=== PATIENT | male | born 1965 | race Caucasian/White ===

== ENCOUNTER 2022-03-14 10:18 | Outpatient (CLI) | payer BC, SELFPAY ==
[2022-03-14 17:49] LABS: HIV 1/2/P24 Combo Screen* Negative (Negative)
== END 2022-03-14 10:19 | disposition home or self-care (01) ==
LOC: NFLDREF 15:40
PROVIDERS: PCP Family Medicine; Visit Provider Family Medicine
DX: Z11.3 Encounter for screening for infections with a predominantly sexual mode of transmission (principal)
CPT/HCPCS: 86703

== ENCOUNTER 2022-09-02 08:45 | Outpatient (CLI) | payer BC, SELFPAY | END 2022-09-02 08:46 | disposition home or self-care (01) | LOC: NFLDREF 09-03 00:11 | PROVIDERS: PCP Family Medicine; Referring Provider Family Medicine; Visit Provider Family Medicine | DX: Z00.00 Encounter for general adult medical examination without abnormal findings (principal); R79.89 Other specified abnormal findings of blood chemistry; Z13.6 Encounter for screening for cardiovascular disorders; Z12.5 Encounter for screening for malignant neoplasm of prostate | CPT/HCPCS: 80053; 80061; 84153 ==

== ENCOUNTER 2023-07-27 09:26 | Outpatient (CLI) | payer BC, SELFPAY ==
--- NOTE | 2023-07-27 10:41 | W.ANESCHARGE ---
Anesthesia Charges Start Date/Time Anesthesia Start Date: 07/27/23 Anesthesia Start Time: 10:09 Stop Date/Time Anesthesia Stop Date: 07/27/23 Anesthesia Stop Time: 10:37
--- NOTE | 2023-07-27 11:28 | W.ANESCHARGE ---
Anesthesia Charges Start Date/Time Anesthesia Start Date: 07/27/23 Anesthesia Start Time: 10:09 Stop Date/Time Anesthesia Stop Date: 07/27/23 Anesthesia Stop Time: 10:37
== END 2023-07-27 09:27 | disposition home or self-care (01) ==
LOC: OP CLINIC 09:26
PROVIDERS: PCP Family Medicine; Visit Provider Internal Medicine
DX: K63.5 Polyp of colon (principal); K57.30 Diverticulosis of large intestine without perforation or abscess without bleeding; Z86.010 Personal history of colon polyps
CPT/HCPCS: 00811; 45380; 88305; J2704

== ENCOUNTER 2023-09-07 08:27 | Outpatient (CLI) | payer BC, SELFPAY ==
--- OUTSIDE RECORDS SUMMARY | 2023-09-15 07:26 | XMS_ITS | Encounter Summary ---
Author Name Unknown Organization [place] Address [address] [place] [address] Care Team Providers Care Building Carpenter Name Role Phone Jamir Mcdaniel MD Primary Care Provider [phone] Duke Osorio [facility] Unavailable [phone] Jamir Mcdaniel MD Unavailable Jamir Mcdaniel MD Unavailable Reason for Visit * Reason Onset Date Comments Patient Reminder 06/05/2015 Due for six thu ov. Encounter Details Date Type Department Care Team (Late st Contact Info) Description 06/05/2015 [facility] [address] [phone] [place]apnaNellieDe [place] Patient Reminder (Due for six month ov.) Social History Tobacco Use Types Packs/Day Years Used Date Smoking Tobacco: Never Smokeless Tobacco: Never Alcohol Use Standard Drinks/Week Comments Yes 0 (1 standard drink = 0.6 oz pur e alcohol) Sex and Gender Information Value Date Recorded Sex Assigned at Not on file Gender Identity Not on file Sexual Orientation Not on file documented as of this encounter Plan of Treatment Not on file documented as of this encounter Visit Diagnoses Not on filedocumented in this encounter Care Teams Building Carpenter Relationship Specialty Start Date End Date Jamir Mcdaniel MD [address] [place] [address] PCP - General Family Practice 08/30/12 Jamir Mcdaniel MD [address] [place] [address] PCP - Assigned PCP 08/05/12 08/03/18 Duke Osorio, [facility] [address] [place] [address] Other (see comments) Photography Coordinator - Clinical 12/06/13 Jamir Mcdaniel MD [address] [place] [address] Assigned PCP 08/05/12 09/25/18 documented as of this encounter
--- OUTSIDE RECORDS SUMMARY | 2023-09-15 07:26 | XMS_ITS | Encounter Summary ---
Author Name Unknown Organization [place] Address [facility] [place] [address] Care Team Providers Care Net Maker Name Role Phone Jamir Martinez MD Primary Care Provider Duke Osorio [facility] Unavailable [phone] Jamir Martinez MD Unavailable Jamir Martinez MD Unavailable Encounter Details Date Type Department Care Team (Late st Contact Info) Description 12/22/2014 [facility] [address] [phone] Jamir Martinez MD [address] [place] [id number] Social History Tobacco Use Types Packs/Day Years Used Date Smoking Tobacco: Never Smokeless Tobacco: Never Alcohol Use Standard Drinks/Week Comments Yes 0 (1 standard drink = 0.6 oz pur e alcohol) Sex and Gender Information Value Date Recorded Sex Assigned at Not on file Gender Identity Not on file Sexual Orientation Not on file documented as of this encounter Miscellaneous Notes * Telephone Encounter - Bertha Meng RN - 12/22/2014 3:[address] martinez Pt last office visit with you 07/16 Please see my chart msg below and advise. Thanks! ANG Stone Triage Nurse documented in this encounter Plan of Treatment Not on file documented as of this encounter Visit Diagnoses Not on filedocumented in this encounter Care Teams Net Maker Relationship Specialty Start Date End Date Jamir Martinez MD [address] [place] [address] PCP - General Family Practice 08/30/12 Jamir Martinez MD [address] [place] [address] PCP - Assigned PCP 08/05/12 08/03/18 Duke Osorio, [facility] [address] [place] [address] Other (see comments) Hospital Educator - Clinical 12/06/13 Jamir Martinez MD [address] [place] [address] Assigned PCP 08/05/12 09/25/18 documented as of this encounter
--- OUTSIDE RECORDS SUMMARY | 2023-09-15 07:26 | XMS_ITS | Encounter Summary ---
Author Name Unknown Organization [place] Address [facility] [place] [address] Care Team Providers Care Gate Manager Name Role Phone Jamir Mcdaniel MD Primary Care Provider [phone] Duke Osorio [facility] Unavailable + [phone] Jamir Mcdaniel MD Unavailable Jamir Mcdaniel MD Unavailable Reason for Visit * Reason Onset Date Comments Patient Request 08/28/2015 results Encounter Details Date Type Department Care Team (Late st Contact Info) Description 08/28/2015 Telephone [facility] [address] [phone] Gilmar Davies NP [address] [facility] [address] [place], [place] [id number] Patient Request (results) Social History Tobacco Use Types Packs/Day Years [...] encounter Miscellaneous Notes * Telephone Encounter - Gilmar Davies NP - 08/28/2015 1:43 PM CDT Discussed MRI results and difference from a disc herniation and DDD/ * Telephone Encounter - Jose Schwabin - 08/28/2015 1:31 PM CDT Patient wants to talk more about MRI results documented in this encounter Plan of Treatment Not on file documented as of this encounter Visit Diagnoses Not on filedocumented in this encounter Additional Health Concerns Assessment Noted Time PHQ-9 Depression Total Score: 1 08/17/19 16 8:05 AM CDT documented as of this encounter Care Teams Gate Manager Relationship Specialty Start Date End Date Jamir Mcdaniel MD [address] [place] [address] PCP - General Family Practice 08/30/12 Jamir Mcdaniel MD [address] [place] [address] PCP - Assigned PCP 08/05/12 08/03/18 Duke Osorio, [facility] [address] [address] Other (see comments) Student Ministries Director - Clinical 12/06/13 Jamir Mcdaniel MD [address] [place] [address] Assigned PCP 08/05/12 09/25/18 documented as of this encounter
--- OUTSIDE RECORDS SUMMARY | 2023-09-15 07:26 | XMS_ITS | Encounter Summary ---
Author Name Unknown Organization [place] Address [facility] [place] [address] Care Team Providers Care Racecar Driver Name Role Phone Jamir Mcdaniel MD Primary Care Provider [phone] Duke Osorio HANDS HANGER Unavailable [phone] Jamir Mcdaniel MD Unavailable Jamir Mcdaniel MD Unavailable Reason for Visit * Reason Comments Outpatient Therapy Discharge Summary Encounter Details Date Type Department Care Team (Late st Contact Info) Description 05/04/2013 [facility] Extended Documentation [address] [phone] Duke Osorio, HANDS HANGER [address] [address] Social History Tobacco Use Types Packs/Day Years [...] on filedocumented in this encounter Care Teams Racecar Driver Relationship Specialty Start Date End Date Jamir Mcdaniel MD [address] [place] [address] PCP - General Family Practice 08/30/12 Jamir Mcdaniel MD [address] [place] [address] PCP - Assigned PCP 08/05/12 08/03/18 Duke Osorio, [facility] [address] [address] Other (see comments) Arts Therapist - Clinical 12/06/13 Jmair Mcdaniel MD [address] [place] [address] Assigned PCP 08/05/12 09/25/18 documented as of this encounter
--- OUTSIDE RECORDS SUMMARY | 2023-09-15 07:26 | XMS_ITS | Encounter Summary ---
Author Name Unknown Organization [place] Address [facility] [address] Care Team Providers Care Golf Course Starter Name Role Phone Jamir Mcdaniel MD Primary Care Provider [phone] Duke Osorio COAL YARD SUPERVISOR Unavailable [phone] Jamir Mcdaniel MD Unavailable Jamir Mcdaniel MD Unavailable Reason for Visit * Reason Comments Outpatient Therapy Treatment Plan Encounter Details Date Type Department Care Team (Late st Contact Info) Description 09/24/2012 [facility] Extended Documentation [address] [phone] Duke Osorio, COAL YARD SUPERVISOR [address] [address] Social History Tobacco Use Types Packs/Day Years Used Date Smoking Tobacco: Never Alcohol Use Standard Drinks/Week Comments [...] on filedocumented in this encounter Care Teams Golf Course Starter Relationship Specialty Start Date End Date Jamir Mcdaniel MD [address] [place] [address] PCP - General Family Practice 08/30/12 Jamir Mcdaniel MD [address] [place] [address] PCP - Assigned PCP 08/05/12 08/03/18 Duke Osorio, [facility] [address] [place] [address] Other (see comments) Manager Library - Clinical 12/06/13 Jamir Mcdaniel MD [address] [place] [address] Assigned PCP 08/05/12 09/25/18 documented as of this encounter
--- OUTSIDE RECORDS SUMMARY | 2023-09-15 07:26 | XMS_ITS | Clinical Summary ---
Author Name Unknown Organization [place] Address [address] [place] [address] Care Team Providers Care Red Leader Name Role Phone Jamir Mcdaniel MD Primary Care Provider [phone] Duke Osorio AUDIOLOGY DOCTOR Unavailable [phone] Allergies Active Allergy Reactions Criticality Noted Date Comments No Known Drug Allergy 03/01/2013 Perfume 06/22/2014 Couldn't breathe Medications Medication Sig Dispensed Refills Start Date End Date Status albuterol (PROAIR HFA, PROVENTIL HFA, VENTOLIN HFA) 108 (90 BASE) MCG/ACT inhalerIndications:A cute bronchitis with symptoms > 10 days Inhale 2 puffs into the lungs every 6 hours as needed for shortness of breath / dyspnea or wheezing 1 Inhaler 1 09/21/2015 Active escitalopram (LEXAPRO) 5 MG tabletIndications:Dy sthymia TAKE 1 TABLET BY MOUTH EVERY DAY 90 tablet 11/24/2016 Active gabapentin (NEURONTIN) 300 MG capsuleIndications:N europathy of left foot TAKE 1 CAPSULE BY MOUTH EVERY NIGHT AT BEDTIME` 30 capsule 11/24/2016 Active DEXILANT 60 MG CPDR CR capsuleIndications:D ysphagia, unspecified type TAKE 1 CAPSULE(60 MG) BY MOUTH DAILY 30 capsule 11/24/2016 Active Active Problems Patient Care Coordination No te Formatting of this note migh t be different from the original. [email or web address] Problem Noted Date Diagnosed Date Anxiety 06/22/2014 Adjustment disorder with mixed anxiety and depre ssed mood 12/06/2013 Nonallopathic lesion of lower extremities 2013 Overview: Problem list name updated by automated process. Provider to review Dysthymia 11/03/2012 Adjustment reaction 09/17/2012 Overview: Problem list name updated by automated process. Provider to review Dysphagia 08/27/2012 Neuropathy of left foot 08/27/2012 Resolved Problems Problem Noted Date Diagnosed Date Resolved Date Low back pain 07/19/2014 01/08/2015 Overview: Diagnosis updated by automated process. Provider to review and confirm. Thoracic or lumbosacral neur itis or radiculitis, unspecified 07/19/2014 01/08/2015 Adjustment disorder with depressed mood 01/04/2014 01/04/2014 Lumbar radiculopathy 10/07/2013 015 Pain in joint, ankle and foot 08/23/2013 07/19/2014 Immunizations Name Administration Dates Next Due COVID-19 MONOVALENT 12+ (Pfizer) 08/02/2020,07/02 TD,PF 7+ (Tenivac) 05/12/2008 TDAP Vaccine (Adacel) 03/01/2013 Family History Medical History Relation Comments Alcohol/Drug Father Diabetes Maternal Grandfather Cerebrovascular Disease Mother Alcohol/Drug Paternal Grandfather Alcohol/Drug Paternal Grandmother Relation Status Comments Father Maternal Grandfather Maternal Grandmother Mother Alive Paternal Grandfather Paternal Grandmother Social History Tobacco Use Types Packs/Day Years Used Date Smoking Tobacco: Never Smokeless Tobacco: Never Alcohol Use Standard Drinks/Week Comments Yes 0 (1 standard drink = 0.6 oz pur e alcohol) PHQ-2 Answer Date Recorded PHQ-2 Score 0 06/16/2018 Adolescent Education Answer Date Record ed Getting School Help Needed Not on file 03/18 Sex and Gender Information Value Date Recorded Sex Assigned at Not on file Gender Identity Not on file Sexual Orientation Not on file Last Filed Vital Signs Vital Sign Reading Time Taken Comments Blood Pressure 110/78 09/21/2015 4:20 PM CDT Pulse 76 09/21/2015 4:20 PM CDT Temperature 36.6 ??C (97.8 ??F) 09/21/2015 4:20 PM CD T Respiratory Rate 16 09/21/2015 4:20 PM CDT Oxygen Saturation 98% 09/21/2015 4:20 PM CDT Inhaled Oxygen Concentration - - Weight 100.7 kg (222 lb) 09/21/2015 4:20 PM CDT Height 171.5 cm (5' 7.5) 08/16/2015 11:23 AM CD T Body Mass Index 34.26 08/16/2015 11:23 AM CDT Plan of Treatment Health Maintenance Due Date Last Done Comments ADVANCE CARE PLANNING 1966 ANNUAL REVIEW OF HM ORDERS 1966 CT COLONOGRAPHY 1966 FIT 1966 FLEX SIG 1966 sDNA (Cologuard) 1966 COLONOSCOPY 1976 COLORECTAL CANCER SCREENING 1976 HEPATITIS C SCREENING 1984 HEPATITIS A IMMUNIZATION (1 of 2 - Risk 2-dose series) 1985 HEPATITIS B IMMUNIZATION (1 of 3 - 19+ 3-dose series) 1985 YEARLY PREVENTIVE VISIT 07/21/2015 07/21/19 15, 03/01/2013 GLUCOSE 07/21/2017 07/21/2014, 03/01/2013 LIPID 07/21/2019 07/21/2014, 03/01/2013 ZOSTER IMMUNIZATION (2 of 2) 08/15/2020 06/20/2020 COVID-19 Vaccine (3 - 2022-2 4 season) 2023 08/02/2020, 07/12/2020 INFLUENZA VACCINE (#1) 2023 , 03/01/2020, 06/16/2018 DTAP/TDAP/TD IMMUNIZATION (2 - Td or Tdap) 03/01/2023 03/01/2013, 05/12/2008, 05/12/2008 HIV SCREENING Completed 03/01/2013 HPV IMMUNIZATION Aged Out No longer e ligible based on patient's age to complete this topic IPV IMMUNIZATION Aged Out No longer e ligible based on patient's age to complete this topic MENINGITIS IMMUNIZATION Aged Out No l onger eligible based on patient's age to complete this topic Pneumococcal Vaccine: Pediatrics (0 to 5 Years) and At-Risk Patients (6 to 64 Years) Aged Out No longer eligible b ased on patient's age to complete this topic RSV MONOCLONAL ANTIBODY Aged Out No l onger eligible based on patient's age to complete this topic Procedures Procedure Name Priority Date/Time Associated Diagnosis Comments GLUCOSE Routine 07/21/2014 8:41 AM COLD FOOD PACKER Routine General Medical Examination At A Health Care Facility LIPID PROFILE Routine 07/21/2014 8:41 AM COLD FOOD PACKER Routine General Medical Examination At A [facility] HIV 1 AND 2 ANTIBODY (QUEST) Routine 03/01/2013 8:21 AM CDT Routine general medical examination at a [place] healthcare care facility from Last 3 Months or Most Recently Relevant to Health Maintenance Results * (ABNORMAL) Lipid Profile (Chol, Trig, HDL, LDL calc) (07/21/2014 8:41 AM COLD FOOD PACKER) Cholesterol 155 <200 mg/dL [facility] Comment: LDL Cholesterol is the primary guide to therapy. The NCEP recommends further evaluation of: patients with cholesterol greater than 200 mg/dL if additional risk factors are present, cholesterol greater than 240 mg/dL, triglycerides greater than 150 mg/dL, or HDL less than 40 mg/dL. Triglycerides 175(H) 0 - 150 mg/dL [facility] Comment:Fasting specimen HDL Cholesterol 33(L) >40 mg/dL [facility] LDL Cholesterol Calculated 87 0 - 129 mg/dL [facility] Comment: LDL Cholesterol is the primary guide to therapy: LDL-cholesterol goal in high risk patients is <100 mg/dL and in very high risk patients is <70 mg/dL. VLDL-Cholesterol 35(H) 0 - 30 mg/dL [facility] Cholesterol/HDL Ratio 4.7 0.0 - 5.0 [facility] Blood specimen (specimen) 07/21/2014 8:41 AM COLD FOOD PACKER 07/21/2014 8:42 AM COLD FOOD PACKER Jamir Mcdaniel MD LAB - BLOOD ORDERABL ES [facility] [address] [place] [address] * (ABNORMAL) Glucose (07/21/2014 8:41 AM COLD FOOD PACKER) Glucose 103(H) 70 - 99 mg/dL [facility] Comment: Effective 12/28/2013, the reference range for this assay has changed to reflect new instrumentation/methodology. Blood specimen (specimen) 07/21/2014 8:41 AM COLD FOOD PACKER 07/21/2014 8:42 AM COLD FOOD PACKER Jamir Mcdaniel MD LAB - BLOOD ORDERABL ES [facility] [address] [place] [address] * HIV 1 and 2 Antibody (03/01/2013 8:21 AM CDT) Pathologist [facility] [place] [facility] HIV 1&2 Antibody Negative [facility] Blood specimen (specimen) 03/01/2013 8:21 AM CDT 03/01/2013 9:25 AM CDT Jamir Mcdaniel MD LAB - BLOOD ORDERABL ES [facility] from Last 3 Months or Most Recently Relevant to Health Maintenance Care Teams Red Leader Relationship Specialty Start Date End Date Jamir Mcdaniel MD [address] [place], [place] [id number] PCP - General Family Practice 08/30/12 Duke Osorio, AUDIOLOGY DOCTOR [facility] [address] [place] [address] Other (see comments) Pain Management Specialist - Clinical 12/06/13
--- OUTSIDE RECORDS SUMMARY | 2023-09-15 07:26 | XMS_ITS | Clinical Summary ---
Author Name Unknown Organization [facility] Address [place], [place] [address] Care Team Providers Care Research Anthropologist Name Role Phone Pcp, No Primary Care Provider Unavailabl e Allergies No known active allergies Medications Medication Sig Dispensed Refills Start Date End Date Status Dexlansoprazole (DEXILANT) 60 mg CpDB delayed release capsuleIndications:Hist ory of gastroesophageal reflux (GERD) Take 60 mg by mouth once daily. 60 capsule 04/10/2017 Active escitalopram oxalate (LEXAPRO) 5 mg tabletIndications:Adjus tment disorder with depressed mood TAKE 1 TABLET BY MOUTH ONCE DAILY. 15 tablet 08/19/2017 Active omeprazole (PRILOSEC) 40 mg Delayed-Release capsuleIndications:Oanh tong reflux TAKE ONE CAPSULE BY MOUTH EVERY DAY 15 capsule 08/19/2017 Active Active Problems Problem Noted Date Diagnosed Date Acid reflux Back pain Overview: L5 level, pinched nerve; flares up off and on; stretching really helps; takes gabapentin rarely for foot pain Encounters Date Type Department Care Team Description 07/27/2023 Lab Requisition [facility] [phone] Daljit Leger MD from Last 3 Months Immunizations Name Administration Dates Next Due Tdap 03/01/2013 Family History Medical History Relation Name Comments Alcoholism Father in his 40s Cancer Maternal Grandfather Diabetes Maternal Grandfather No Known Problems Mother Relation Name Status Comments Father Maternal Grandfather Mother Social History Tobacco Use Types Packs/Day Years Used Date Smoking Tobacco: Never Smokeless Tobacco: Never Tobacco Cessation:Counseling Given: No Alcohol Use Standard Drinks/Week Comments Yes 0 (1 standard drink = 0.6 oz pur e alcohol) social Sex and Gender Information Value Date Recorded Sex Assigned at Not on file Gender Identity Not on file Sexual Orientation Not on file Obstetrics History Last Filed Vital Signs Vital Sign Reading Time Taken Comments Blood Pressure 135/85 04/10/2017 2:07 PM GLOBAL TECHNICAL WRITER Pulse 68 04/10/2017 2:07 PM GLOBAL TECHNICAL WRITER Temperature 36.6 ??C (97.8 ??F) 04/10/2017 2:07 PM CS T Respiratory Rate - - Oxygen Saturation 98% 04/10/2017 2:07 PM GLOBAL TECHNICAL WRITER room air Inhaled Oxygen Concentration - - Weight 103 kg (227 lb) 04/10/2017 2:07 PM GLOBAL TECHNICAL WRITER Height 170.8 cm (5' 7.25) 04/10/2017 2:07 PM CS T Body Mass Index 35.29 04/10/2017 2:07 PM GLOBAL TECHNICAL WRITER Plan of Treatment Health Maintenance Due Date Last Done Comments Depression screening for age 12+ 1978 HIV for age 15-65 1981 Hepatitis C screening for ag e 18-79 1984 Colonoscopy through age 75 2011 Lipids for age 45-75 2011 Zoster (shingles) series for age 50+ (1 of 2) 2016 BMI (ht and wt on same day) for age 18+ 04/10/2018 04/10/2017, 11/12/2016 COVID-19 vaccine series ( season) 2023 08/02/2020, 07/12/2020 Tetanus booster 03/01/2023 03/01/2013 Influenza for age 50-64 01/31/2024 Tdap Completed 03/01/2013 Pneumococcal series for age 6-64 Aged Out No longer eligible b ased on patient's age to complete this topic Procedures Procedure Name Priority Date/Time Associated Diagnosis Comments LAB TRACKING EVENT Routine 07/27/2023 10 :29 AM GLOBAL TECHNICAL WRITER PATH TISSUE EXAM Routine 07/27/2023 10:2 9 AM GLOBAL TECHNICAL WRITER from Last 3 Months Results * LAB TRACKING EVENT (07/27/2023 10:29 AM GLOBAL TECHNICAL WRITER) Other (Other) Client Collect / Unknown 07/27/2023 10:29 AM GLOBAL TECHNICAL WRITER 07/27/2023 9:41 PM GLOBAL TECHNICAL WRITER Daljit Leger MD LAB BILL ONLY [facility] [address] [place] [address], [place] * PATH TISSUE EXAM (07/27/2023 10:29 AM GLOBAL TECHNICAL WRITER) Case Report Pathology Report ?Case: [id number] ? Authorizing Provider: ??Daljit Leger MD ?Collected: ? 07/27/2023 1029 ? Ordering Location: ? [facility] ?Received: ?07/28/2023 09 ? Pathologist: ? William Yepez, ? MD ? Specimen: ?Sigmoid Colon ? 07/29/2023 12:07 PM GLOBAL TECHNICAL WRITER [facility] Final Diagnosis A) COLON, SIGMOID, POLYPECTOMY: 1. Tubular adenoma 2. Negative for high grade dysplasia 3. Per the colonoscopy report: ?? a. Polyp size: 3 mm ?? b. Resection: Complete ?? c. Retrieval: Complete 07/29/2023 12:07 PM [facility] Clinical Information Mr. Franco is a 58 y.o. undergoing high risk colon cancer surveillance due to a personal history of colon polyps. 07/29/2023 12:07 PM [facility] Gross Description A) Received in formalin are 4 renee mucosal fragments ranging from 1 mm to 3 mm in greatest dimension, which are entirely submitted in one cassette. It is labeled with the patient's name and designated sigmoid polyp. Lashon Samira Antoine 07/28/2023 10:08 AM 07/29/2023 12:07 PM [facility] Microscopic Description The final diagnosis is based on microscopic examination of appropriate sections of all specimens. 07/29/2023 12:07 PM [facility] Additional Information Interpreted at [facility] - [address] [place] [id number] 07/29/2023 12:07 PM GLOBAL TECHNICAL WRITER [facility] Other SPECIMEN FROM COLON / Unknown 07/27/2023 10:29 AM GLOBAL TECHNICAL WRITER 07/28/2023 9:17 AM GLOBAL TECHNICAL WRITER Daljit Leger MD PATHOLOGY[facility] [address] [place] [address], from Last 3 Months Care Teams Research Anthropologist Relationship Specialty Start Date End Date Pcp, No . PCP - General 11/12/16
--- OUTSIDE RECORDS SUMMARY | 2023-09-15 07:26 | XMS_ITS | Referral Summary ---
Author Name Unknown Organization [place] Address [address] [place] [address] Care Team Providers Care Stranding Supervisor Name Role Phone Jamir Mcdaniel MD Primary Care Provider [phone] Duke Osorio CITY SECRETARY Unavailable [phone] Allergies Active Allergy Reactions Criticality Noted Date [...] migh t be different from the original. [email or web address] Problem Noted Date Diagnosed Date Anxiety 06/22/2014 [...] 7+ (Tenivac) 05/12/2008 TDAP Vaccine (Adacel) 03/01/2013 Social History Tobacco Use Types Packs/Day Years [...] 08/16/2015 11:23 AM CDT Plan of Treatment Not on file Procedures Procedure Name Priority Date/Time Associated Diagnosis Comments GLUCOSE Routine 07/21/2014 8:41 AM OPERATIONS SUPPORT MANAGER Routine General Medical Examination At A Health Care Facility LIPID PROFILE Routine 07/21/2014 8:41 AM OPERATIONS SUPPORT MANAGER Routine General Medical Examination At A Health Care Facility HIV 1 AND 2 ANTIBODY (QUEST) Routine 03/01/2013 8:21 AM CDT Routine general medical examination at a health care facility from Last 3 Months or Most Recently Relevant to Health Maintenance Results * (ABNORMAL) Lipid Profile (Chol, Trig, HDL, LDL calc) (07/21/2014 8:41 AM OPERATIONS SUPPORT MANAGER) Cholesterol 155 <200 mg/dL [facility] Comment: LDL Cholesterol is the primary guide to therapy. The NCEP recommends further evaluation of: patients with cholesterol greater than 200 mg/dL if additional risk factors are present, cholesterol greater than 240 mg/dL, triglycerides greater than 150 mg/dL, or HDL less than 40 mg/dL. Triglycerides 175(H) 0 - 150 mg/dL [facility] Comment:Fasting specimen HDL Cholesterol 33(L) >40 mg/dL [facility] LDL Cholesterol Calculated 87 0 - 129 mg/dL [facility] Comment: LDL Cholesterol is the primary guide to therapy: LDL-cholesterol goal in high risk patients is <100 mg/dL and in very high risk patients is <70 mg/dL. VLDL-Cholesterol 35(H) 0 - 30 mg/dL [facility] Cholesterol/HDL Ratio 4.7 0.0 - 5.0 [facility] Blood specimen (specimen) 07/21/2014 8:41 AM OPERATIONS SUPPORT MANAGER 07/21/2014 8:42 AM OPERATIONS SUPPORT MANAGER Jamir Mcdaniel MD LAB - BLOOD ORDERABL ES [facility] [address] [address] * (ABNORMAL) Glucose (07/21/2014 8:41 AM OPERATIONS SUPPORT MANAGER) Glucose 103(H) 70 - 99 mg/dL [facility] Comment: Effective 12/28/2013, the reference range for this assay has changed to reflect new instrumentation/methodology. Blood specimen (specimen) 07/21/2014 8:41 AM OPERATIONS SUPPORT MANAGER 07/21/2014 8:42 AM OPERATIONS SUPPORT MANAGER Jamir Mcdaniel MD LAB - BLOOD ORDERABL ES [facility] [address] [place] [address] * HIV 1 and 2 Antibody (03/01/2013 8:21 AM CDT) Pathologist [facility] HIV 1&2 Antibody Negative [facility] Blood specimen (specimen) 03/01/2013 8:21 AM CDT 03/01/2013 9:25 AM CDT Jamir Mcdaniel MD LAB - BLOOD ORDERABL ES [facility] from Last 3 Months or Most Recently Relevant to Health Maintenance Care Teams Stranding Supervisor Relationship Specialty Start Date End Date Jamir Mcdaniel MD [address] [place], [place] [id number] PCP - General Family Practice 08/30/12 Duke Osorio, [place] SECRETARY [address] [address] Other (see comments) Retail Cosmetics Sales Beauty Advisor - Clinical 12/06/13
== END 2023-09-07 08:28 | disposition home or self-care (01) ==
LOC: NFLDREF 09-15 07:25
PROVIDERS: PCP Family Medicine; Referring Provider Family Medicine; Visit Provider Family Medicine
DX: E78.5 Hyperlipidemia, unspecified (principal); R79.89 Other specified abnormal findings of blood chemistry; Z79.899 Other long term (current) drug therapy; Z11.3 Encounter for screening for infections with a predominantly sexual mode of transmission
CPT/HCPCS: 80053; 80061; 86703; 86803; 87341

== ENCOUNTER 2023-12-17 08:50 | Outpatient (CLI) | payer BC, SELFPAY ==
--- OUTSIDE RECORDS SUMMARY | 2023-12-21 09:16 | XMS_ITS | Clinical Summary ---
Author Organization [employer] [facility] [facility] Address [place], [place] [address] Care Team Providers Care Tank Furnace Operator Name Role Phone Pcp, No Primary Care [...] helps; takes gabapentin rarely for foot pain Immunizations Name Administration Dates Next Due Tdap [...] Comments Blood Pressure 135/85 04/10/2017 2:07 PM ASSISTANT GOLF PROFESSIONAL Pulse 68 04/10/2017 2:07 PM ASSISTANT GOLF PROFESSIONAL Temperature 36.6 ??C (97.8 ??F) 04/10/2017 2:07 PM CS T Respiratory Rate - - Oxygen Saturation 98% 04/10/2017 2:07 PM ASSISTANT GOLF PROFESSIONAL room air Inhaled Oxygen Concentration - - Weight 103 kg (227 lb) 04/10/2017 2:07 PM ASSISTANT GOLF PROFESSIONAL Height 170.8 cm (5' 7.25) 04/10/2017 2:07 PM CS T Body Mass Index 35.29 04/10/2017 2:07 PM ASSISTANT GOLF PROFESSIONAL Plan of Treatment Health Maintenance Due Date [...] on patient's age to complete this topic Care Teams Tank Furnace Operator Relationship Specialty Start Date End Date Pcp, No . PCP - General 11/12/16
--- OUTSIDE RECORDS SUMMARY | 2023-12-21 09:16 | XMS_ITS | Encounter Summary ---
Author Organization [place] Address [address] [place] [address] Care Team Providers Care Water Resources Engineer Name Role Phone Jamir Mcdaniel MD Primary Care Provider [phone] Duke Osorio [facility] Unavailable [phone] Jamir Mcdaniel MD Unavailable Jamir Mcdaniel MD Unavailable Reason for Visit * Reason Onset Date Comments Patient Request 08/28/2015 results Encounter Details Date Type Department Care Team (Late st Contact Info) Description 08/28/[address] [facility] [address] [phone] Gilmar Davies NP [address] [facility] [address] [place], [place] [phone] Patient Request (results) Social History Tobacco Use [...] herniation and DDD/ * Telephone Encounter - Josselin Francisco Javier - 08/28/2015 1:31 PM CDT Patient wants to talk more about MRI results documented in this encounter Plan of Treatment Not on file documented as of this encounter Visit Diagnoses Not on filedocumented in this encounter Additional Health Concerns Assessment Noted Time PHQ-9 Depression Total Score: 1 08/17/19 16 8:05 AM CDT documented as of this encounter Care Teams Water Resources Engineer Relationship Specialty Start Date End Date Jamir Mcdaniel MD [address] [place] [address] PCP - General Family Practice 08/30/12 Jamir Mcdaniel MD [address] [place] [address] PCP - Assigned PCP 08/05/12 08/03/18 Duke Osorio, [facility] [address] [place] [address] Other (see comments) Sales Operations Coordinator - Clinical 12/06/13 Jamir Mcdaniel MD [address] [place] [address] Assigned PCP 08/05/12 09/25/18 documented as of this encounter
--- OUTSIDE RECORDS SUMMARY | 2023-12-21 09:16 | XMS_ITS | Referral Summary ---
Author Organization [place] Address [address] [place] [address] Care Team Providers Care Salesperson Used Cars Name Role Phone Jamir Mcdaniel MD Primary Care Provider [phone] Duke Osorio BICYCLE ASSEMBLER Unavailable [phone] Allergies Active Allergy Reactions Criticality Noted Date [...] migh t be different from the original. [email or web address] Problem Noted Date Diagnosed Date Anxiety 06/22/2014 [...] Diagnosis Comments GLUCOSE Routine 07/21/2014 8:41 AM WIND ENERGY SYSTEMS INSTALLER Routine General Medical Examination At A Health Care Facility LIPID PROFILE Routine 07/21/2014 8:41 AM WIND ENERGY SYSTEMS INSTALLER Routine General Medical Examination At A Health Care Facility HIV 1 AND 2 ANTIBODY (QUEST) Routine 03/01/2013 8:21 AM CDT Routine general [facility] from Last 3 Months or Most Recently Relevant to Health Maintenance Results * (ABNORMAL) Lipid Profile (Chol, Trig, HDL, LDL calc) (07/21/2014 8:41 AM WIND ENERGY SYSTEMS INSTALLER) Cholesterol 155 <200 mg/dL [facility] Comment: LDL Cholesterol is the primary guide to therapy. The NCEP recommends further evaluation of: patients with cholesterol greater than 200 mg/dL if additional risk factors are present, cholesterol greater than 240 mg/dL, triglycerides greater than 150 mg/dL, or HDL less than 40 mg/dL. Triglycerides 175(H) 0 - 150 mg/dL [facility] Comment:Fasting specimen HDL Cholesterol 33(L) >40 mg/dL [facility] LDL Cholesterol Calculated 87 0 - 129 mg/dL [facility] Comment: LDL Cholesterol is the primary guide to therapy: LDL-cholesterol goal in high risk patients is <100 mg/dL and in very high risk patients is <70 mg/dL. VLDL-Cholesterol 35(H) 0 - 30 mg/dL [facility] Cholesterol/HDL Ratio 4.7 0.0 - 5.0 [facility] Blood specimen (specimen) 07/21/2014 8:41 AM WIND ENERGY SYSTEMS INSTALLER 07/21/2014 8:42 AM WIND ENERGY SYSTEMS INSTALLER Jamir Mcdaniel MD LAB - BLOOD ORDERABL ES [facility] [address], [place] [address] * (ABNORMAL) Glucose (07/21/2014 8:41 AM WIND ENERGY SYSTEMS INSTALLER) Glucose 103(H) 70 - 99 mg/dL [facility] Comment: Effective 12/28/2013, the reference range for this assay has changed to reflect new instrumentation/methodology. Blood specimen (specimen) 07/21/2014 8:41 AM WIND ENERGY SYSTEMS INSTALLER 07/21/2014 8:42 AM WIND ENERGY SYSTEMS INSTALLER Jamir Mcdaniel MD LAB - BLOOD ORDERABL ES [facility] [address], [place] [address] * HIV 1 and 2 Antibody (03/01/2013 8:21 AM CDT) HIV 1&2 Antibody Negative [facility] Blood specimen (specimen) 03/01/2013 8:21 AM CDT 03/01/2013 9:25 AM CDT Jamir Mcdaniel MD LAB - BLOOD ORDERABL ES [facility] from Last 3 Months or Most Recently Relevant to Health Maintenance Care Teams Salesperson Used Cars Relationship Specialty Start Date End Date Jamir Mcdaniel MD [address] [place], [place] [id number] PCP - General Family Practice 08/30/12 Duke Osorio, BICYCLE ASSEMBLER [address] [address] Other (see comments) Newspaper Writer - Clinical 12/06/13
--- OUTSIDE RECORDS SUMMARY | 2023-12-21 09:16 | XMS_ITS | Encounter Summary ---
Author Organization [place] Address [address] [place] [address] Care Team Providers Care Campus Ambassador Name Role Phone Jamir Mcdaniel MD Primary Care Provider [phone] Duke Osorio [facility] Unavailable [phone] Jamir Mcdaniel MD Unavailable Jamir Mcdaniel MD Unavailable Reason for Visit * Reason Onset Date Comments Patient Reminder 06/05/2015 Due for six mon th ov. Encounter Details Date Type Department Care Team (Late st Contact Info) Description 06/05/2015 [facility] [address] [phone] Swapna [place] Patient Reminder (Due for six month ov.) [...] on filedocumented in this encounter Care Teams Campus Ambassador Relationship Specialty Start Date End Date Jamir Mcdaniel MD [address] [place] [address] PCP - General Family Practice 08/30/12 Jamir Mcdaniel MD [address] [facility] [address] PCP - Assigned PCP 08/05/12 08/03/18 Duke Osorio, [facility] [address] [address] Other (see comments) Access Control Officer - Clinical 12/06/13 Jamir Mcdaniel MD [address] [place] [address] Assigned PCP 08/05/12 09/25/18 documented as of this encounter
--- OUTSIDE RECORDS SUMMARY | 2023-12-21 09:16 | XMS_ITS | Encounter Summary ---
Author Organization [place] Address [address] [place] [address] Care Team Providers Care Concrete Mixer Loader Truck Mounted Name Role Phone Jamir Martinez MD Primary Care Provider Duke Osorio [facility] Unavailable [phone] Jamir Martinez MD Unavailable Jamir Martinez MD Unavailable Encounter Details Date Type Department Care Team (Late st Contact Info) Description 12/22/2014 [facility] [address] [phone] Jamir Martinez MD [address] [place] [id number] Social History Tobacco Use Types Packs/Day Years [...] on filedocumented in this encounter Care Teams Concrete Mixer Loader Truck Mounted Relationship Specialty Start Date End Date Jamir Martinez MD [address] [place] [address] PCP - General Family Practice 08/30/12 Jamir Martinez MD [address] [place] [address] PCP - Assigned PCP 08/05/12 08/03/18 Duke Osorio, [facility] [address] [address] Other (see comments) Digital Research Analyst - Clinical 12/06/13 Jamir Martinez MD [address] [place] [address] Assigned PCP 08/05/12 09/25/18 documented as of this encounter
--- OUTSIDE RECORDS SUMMARY | 2023-12-21 09:16 | XMS_ITS | Clinical Summary ---
Author Organization [place] Address [address] [place] [address] Care Team Providers Care Sandblaster Supervisor Name Role Phone Jamir Mcdaniel MD Primary Care Provider [phone] Duke Osorio PHOTOENGRAVING SKETCH MAKER Unavailable [phone] Allergies Active Allergy Reactions Criticality Noted Date [...] migh t be different from the original. [email or web address] Problem Noted Date Diagnosed Date Anxiety 06/22/2014 [...] - 2022-2 4 season) 2023 08/02/2020, 07/12/2020 DTAP/TDAP/TD IMMUNIZATION (2 - Td or Tdap) 03/01/2023 03/01/2013, 05/12/2008 INFLUENZA VACCINE (#1) 2024 0, 03/01/2020, 06/16/2018 HIV SCREENING Completed 03/01/2013 HPV IMMUNIZATION Aged [...] Diagnosis Comments GLUCOSE Routine 07/21/2014 8:41 AM MARKETER Routine General Medical Examination At A Health Care Facility LIPID PROFILE Routine 07/21/2014 8:41 AM MARKETER Routine General Medical Examination At A Health Care Facility HIV 1 AND 2 ANTIBODY (QUEST) Routine 03/01/2013 8:21 AM CDT Routine general medical examination at a health care facility from Last 3 Months or Most Recently Relevant to Health Maintenance Results * (ABNORMAL) Lipid Profile (Chol, Trig, HDL, LDL calc) (07/21/2014 8:41 AM MARKETER) Cholesterol 155 <200 mg/dL [facility] Comment: LDL Cholesterol is the primary guide to therapy. The NCEP recommends further evaluation of: patients with cholesterol greater than 200 mg/dL if additional risk factors are present, cholesterol greater than 240 mg/dL, triglycerides greater than 150 mg/dL, or HDL less than 40 mg/dL. Triglycerides 175(H) 0 - 150 mg/dL [facility] Comment:Fasting specimen HDL Cholesterol 33(L) >40 mg/dL [facility] LDL Cholesterol Calculated 87 0 - 129 mg/dL [facility] Comment: LDL Cholesterol is the primary guide to therapy: LDL-cholesterol goal in high risk patients is <100 mg/dL and in very high risk patients is <70 mg/dL. VLDL-Cholesterol 35(H) 0 - 30 mg/dL [facility] Cholesterol/HDL Ratio 4.7 0.0 - 5.0 [facility] Blood specimen (specimen) 07/21/2014 8:41 AM MARKETER 07/21/2014 8:42 AM MARKETER Jamir Mcdaniel MD LAB - BLOOD ORDERABL ES [facility] [address] [place] [address] * (ABNORMAL) Glucose (07/21/2014 8:41 AM MARKETER) Glucose 103(H) 70 - 99 mg/dL [facility] Comment: Effective 12/28/2013, the reference range for this assay has changed to reflect new instrumentation/methodology. Blood specimen (specimen) 07/21/2014 8:41 AM MARKETER 07/21/2014 8:42 AM MARKETER Jamir Mcdaniel MD LAB - BLOOD ORDERABL ES [facility] [address] [place] [address] * HIV 1 and 2 Antibody (03/01/2013 8:21 AM CDT) Pathologist [facility] HIV 1&2 Antibody Negative [facility] Blood specimen (specimen) 03/01/2013 8:21 AM CDT 03/01/2013 9:25 AM CDT Jamir Mcdaniel MD LAB - BLOOD ORDERABL ES [facility] from Last 3 Months or Most Recently Relevant to Health Maintenance Care Teams Sandblaster Supervisor Relationship Specialty Start Date End Date Jamir Mcdaniel MD [address] [place] [address] PCP - General Family Practice 08/30/12 Duke Osorio, PHOTOENGRAVING SKETCH MAKER [address] [address] Other (see comments) Assistant County Engineer - Clinical 12/06/13
--- OUTSIDE RECORDS SUMMARY | 2023-12-21 09:17 | XMS_ITS | Encounter Summary ---
Author Organization [place] Address [facility] [place] [place] [address] Care Team Providers Care Digital Forensic Analyst Name Role Phone Jamir Mcdaniel MD Primary Care Provider [phone] Duke Osorio SHADOWGRAPH SCALE OPERATOR Unavailable [phone] Jamir Mcdaniel MD Unavailable Jamir Mcdaniel MD Unavailable Reason for Visit * Reason Comments Outpatient Therapy Discharge Summary Encounter Details Date Type Department Care Team (Late st Contact Info) Description 05/04/2013 [facility] Extended Documentation [address] [phone] Duke Osorio, SHADOWGRAPH SCALE OPERATOR [address] [address] Social History Tobacco Use Types Packs/Day Years [...] on filedocumented in this encounter Care Teams Digital Forensic Analyst Relationship Specialty Start Date End Date Jamir Mcdaniel MD [address] [place] [address] PCP - General Family Practice 08/30/12 Jamir Mcdaniel MD [address] [place] [address] PCP - Assigned PCP 08/05/12 08/03/18 Duke Osorio, [facility] [address] [place] [address] Other (see comments) Recycling Center Operator - Clinical 12/06/13 Jamir Mcdaniel MD [address] [place] [address] Assigned PCP 08/05/12 09/25/18 documented as of this encounter
--- OUTSIDE RECORDS SUMMARY | 2023-12-21 09:17 | XMS_ITS | Encounter Summary ---
Author Organization [place] Address [facility] [place] [address] Care Team Providers Care Motion Designer Name Role Phone Jamir Mcdaniel MD Primary Care Provider [phone] Duke Osorio FORGING PRESS SETTER UP Unavailable [phone] Jamir Mcdaniel MD Unavailable Jamir Mcdaniel MD Unavailable Reason for Visit * Reason Comments Outpatient Therapy Treatment Plan Encounter Details Date Type Department Care Team (Late st Contact Info) Description 09/24/2012 [facility] Extended Documentation [address] [phone] Duke Osorio, FORGING PRESS SETTER UP [address] [address] Social History Tobacco Use Types Packs/Day Years [...] on filedocumented in this encounter Care Teams Motion Designer Relationship Specialty Start Date End Date Jamir Mcdaniel MD [address] [place] [address] PCP - General Family Practice 08/30/12 Jamir Mcdaniel MD [address] [facility] [address] PCP - Assigned PCP 08/05/12 08/03/18 Duke Osorio, [facility] [address] [place] [address] Other (see comments) Window Trimmer - Clinical 12/06/13 Jamir Mcdaniel MD [address] [place] [address] Assigned PCP 08/05/12 09/25/18 documented as of this encounter
== END 2023-12-17 08:51 | disposition home or self-care (01) ==
LOC: NFLDREF 12-21 09:15
PROVIDERS: PCP Family Medicine; Referring Provider Family Medicine; Visit Provider Family Medicine
DX: E78.5 Hyperlipidemia, unspecified (principal); Z79.899 Other long term (current) drug therapy; Z11.59 Encounter for screening for other viral diseases
CPT/HCPCS: 80061; 84450; 84460; 86703

== ENCOUNTER 2024-10-10 10:05 | Outpatient (CLI) | payer BC, SELFPAY | END 2024-10-10 10:06 | disposition home or self-care (01) | LOC: NFLDREF 10-18 18:59 | PROVIDERS: PCP Family Medicine; Referring Provider Family Medicine; Visit Provider Family Medicine | DX: Z00.01 Encounter for general adult medical examination with abnormal findings (principal); E78.5 Hyperlipidemia, unspecified; Z11.4 Encounter for screening for human immunodeficiency virus [HIV]; Z11.59 Encounter for screening for other viral diseases | CPT/HCPCS: 80053; 80061; 86703; 86803; 87340 ==

== ENCOUNTER 2024-11-03 07:51 | Outpatient (CLI) | payer BC, SELFPAY ==
--- NOTE | 2024-11-03 08:00 | CRLHL7_ITS ---
For Patients: As a result of the Century Cures Act, medical imaging exams and procedure reports are released immediately into your electronic medical record. You may view this report before your referring provider. If you have questions, please contact your health care provider. Indication: Chronic sinusitis. Head fullness. Technique: Fusion protocol CT of the paranasal sinuses without contrast. Coronal and sagittal reformatted images. Bone and soft tissue algorithms. Comparison: None. Findings: Frontal sinuses: The frontal sinuses and frontal recesses are clear. Ethmoid air cells: Mild polypoid mucosal thickening in the right posterior ethmoid air cells. Symmetric depths of the olfactory fossa. The anterior ethmoidal arteries are well-covered by bone. Sphenoid sinuses: The sphenoid sinuses and ostia are clear. No optic canal or carotid canal dehiscence. Maxillary sinuses: Mild polypoid mucosal thickening in the right maxillary sinus. Trace mucosal thickening along the floor of the left maxillary sinus the osteomeatal units are clear. Nasal cavity: The nasal septum is relatively midline. No jaime bullosa. No paradoxical turbinates. Skullbase, maxilla, TMJ: No lytic or blastic osseous lesions. Periapical lucency adjacent to the left maxillary 2nd molar roots without dehiscence. Mastoid air cells are clear. Orbital contents: Unremarkable Imaged intracranial contents: Unremarkable Imaged soft tissues structures: Unremarkable IMPRESSION: 1. No air-fluid level or osteoneogenesis. 2. Mild polypoid mucosal thickening in the right maxillary sinus. Small retention cyst versus polyp in the right posterior ethmoid air cells. Trace mucosal thickening in the left maxillary sinus. The paranasal sinuses otherwise clear. 3. Periapical lucency adjacent to the left maxillary 2nd molar roots without dehiscence. Please note that all CT scans at this facility use dose modulation, iterative reconstruction, and/or weight-based dosing when appropriate to reduce radiation dose to as low as reasonably achievable. Dictated by Ronal Jim MD @ 11/03/2024 1:52:27 PM (Electronically Signed)
== END 2024-11-03 07:52 | disposition home or self-care (01) ==
LOC: CT 07:52
PROVIDERS: PCP Family Medicine; Visit Provider Otolaryngology
DX: J32.9 Chronic sinusitis, unspecified (principal); J32.0 Chronic maxillary sinusitis
CPT/HCPCS: 70486